=== PATIENT | female | born 2000 | race Caucasian/White ===

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

== ENCOUNTER 2018-08-17 14:10 | Emergency (ER) | payer MEDICAID ==
[~2018-08-17] VITALS: Ht 167.6 cm; Wt 49.9 kg
--- NOTE | 2018-08-17 14:14 | NUR ---
PT AMBULATES TO BED 6
[2018-08-17 14:15] VITALS: BP 108/69
--- NOTE | 2018-08-17 14:20 | NUR ---
PT IS A 17 Y/O FEMALE WHO PRESENTS TO THE ED C/O VOMITING SINCE LAST NIGHT. PT REPORTS 9/10 ACHING LOWER ABD PAIN THAT DOES NOT RADIATE. PT DID NOT TAKE RX FOR PAIN. PT DENIES CP, SOB, REPORTS VOMITING/DIARRHEA. PT AWAKE AND ALERT, RR EVEN/UNLABORED. PT REPOSITIONED FOR COMFORT, BED IN LOWEST POSITION. ER MD DR. FLORES NOTIFIED. WILL CONTINUE TO MONITOR. NO PMH NKA
[2018-08-17 14:39] LABS: APPEARANCE,URINE CLEAR (CLEAR); BILIRUBIN,URINE 1+ (NEGATIVE); BLOOD, URINE NEGATIVE (NEGATIVE); COLOR,URINE YELLOW (YELLOW); LEUKOCYTE ESTERASE ,URINE NEGATIVE (NEGATIVE); NITRITE, URINE NEGATIVE (NEGATIVE); UGLUCOSE NEGATIVE (NEGATIVE)
[2018-08-17 14:40] LABS: RBC,URINE 0-5 (RARE) /HPF (0-5); WBC,URINE 0-5 (RARE) /HPF (0-5)
[2018-08-17 15:02] LABS: BARBITURATE, URINE NEG. ng/ml (NEG <=200); BENZODIAZEPINE, URINE NEG. ng/mL (NEG <=200); CANNABINOID, URINE NEG. ng/mL (NEG <=50); COCAINE, URINE NEG. ng/mL (NEG <=300); OPIATE, URINE NEG. ng/mL (NEG <=2000); PHENCYCLIDINE SCREEN,URINE NEG. ng/mL (NEG <=25)
[2018-08-17] MEDS ORDERED: PROMETHAZINE 25 MG/ML VIAL IM ONE (15:05)
[2018-08-17] MEDS ORDERED: MECLIZINE 25 MG TAB PO ONE (15:05)
[2018-08-17] MEDS ORDERED: ONDANSETRON 4 MG ODT PO ONE (15:05)
[2018-08-17 16:35] VITALS: BP 127/72
--- NOTE | 2018-08-17 16:35 | NUR ---
Patient discharged with v/s stable. Written and verbal after care instructions given and explained. Patient alert, oriented and verbalized understanding of instructions. Ambulatory with steady gait. All questions addressed prior to discharge. ID band removed. Patient advised to follow up with PMD. Rx of FAMOTIDINE 20MG AND PHENERGAN 25MG given. Patient educated on indication of medication including possible reaction and side effects. Opportunity to ask questions provided and answered.
== END 2018-08-17 16:35 | disposition home or self-care (01) ==
LOC: MED 14:10
DX: R11.2 Nausea with vomiting, unspecified (principal); R19.7 Diarrhea, unspecified; R50.9 Fever, unspecified; R42 Dizziness and giddiness; Z79.899 Other long term (current) drug therapy
CPT/HCPCS: 80305; 81001; 81025; 96372; 99283; J2550; J8597; Q0162

== ENCOUNTER 2018-09-01 19:18 | Emergency (ER) | payer MEDICAID ==
[~2018-09-01] VITALS: Ht 170.2 cm; Wt 48.8 kg
[2018-09-01 19:58] VITALS: BP 112/73
--- NOTE | 2018-09-01 20:01 | NUR ---
PT RETURNED TO LOBBY IN STABLE CONDITION
--- NOTE | 2018-09-01 21:57 | NUR ---
PT AMBULATED TO BED 06.
--- NOTE | 2018-09-01 22:37 | NUR ---
X-RAY AT BEDSIDE.
--- NOTE | 2018-09-01 23:00 | NUR ---
PATIENT PRESENTS TO ED WITH ABD PAIN. PT STATES SHE HAS HAD COLD LIKE SYMPTOMS X1-2 WEEKS, VOMITIED LAST NIGHT, HAS NOT BE ABLE TO EAT SINCE THEN. 01/21 ABD PAIN, TIGHTNESS/CRAMPING. +PRODUCTIVE COUGH, LUNG SOUNDS CLEAR THROUGH OUT. BOWEL SOUND ACTIVE X4 QUAD, LBM 08/31. LMP: 08/27/18. SKIN IS PINK/WARM/DRY; AAOX4 WITH EVEN AND STEADY GAIT; LUNGS CLEAR BL; HR EVEN AND REGULAR; PT DENIES ANY FEVER, CP AND SOB AT THIS TIME; VSS; PATIENT POSITIONED FOR COMFORT; HOB ELEVATED; BEDRAILS UP X1; BED DOWN. ER MD MADE AWARE OF PT STATUS. PMH--DENIES RX--DENIES
--- NOTE | 2018-09-01 23:11 | NUR ---
Dr. Kraus evaluating patient at bedside.
--- NOTE | 2018-09-01 23:24 | NUR ---
Patient discharged with v/s stable. Written and verbal after care instructions given and explained. Patient alert, oriented and verbalized understanding of instructions. Ambulatory with steady gait. All questions addressed prior to discharge. ID band removed. Patient advised to follow up with PMD. Rx of Mineral Oil, Zofran, and Senokot given. Patient educated on indication of medication including possible reaction and side effects. Opportunity to ask questions provided and answered.
[2018-09-01 23:28] VITALS: BP 102/64
== END 2018-09-01 23:24 | disposition home or self-care (01) ==
LOC: MED 19:18
DX: K59.00 Constipation, unspecified (principal)
CPT/HCPCS: 74018; 81002; 81025; 99283; Q0092

== ENCOUNTER 2018-09-13 15:17 | Emergency (ER) | payer MEDICAID ==
[~2018-09-13] VITALS: Ht 170.2 cm; Wt 49.9 kg
[2018-09-13 15:22] VITALS: BP 126/66
--- NOTE | 2018-09-13 15:40 | NUR ---
BIB MOTHER WITH C/O DOG BITE EARLIER TODAY ON FACE. + REDNESS, + BLEEDING, PRESSURE APPLIED TO AREA. . DENIES N/V/D; SKIN IS PINK/WARM/DRY; AAOX4 WITH EVEN AND STEADY GAIT; LUNGS CLEAR BL; HR EVEN AND REGULAR; PT DENIES ANY FEVER, CP, SOB, OR COUGH AT THIS TIME; PATIENT STATES PAIN OF 8/10 AT THIS TIME; VSS; PATIENT POSITIONED FOR COMFORT; HOB ELEVATED; BEDRAILS UP X2; BED DOWN. ER MD MADE AWARE OF PT STATUS.
[2018-09-13] MEDS ORDERED: KETOROLAC 60 MG/2 ML VIAL IM ONE (15:50)
[2018-09-13 16:32] VITALS: BP 126/66
== END 2018-09-13 16:33 | disposition home or self-care (01) ==
LOC: MED 15:17
DX: S01.81XA Laceration without foreign body of other part of head, initial encounter (principal); Z79.899 Other long term (current) drug therapy; W54.0XXA Bitten by dog, initial encounter; Y93.89 Activity, other specified; Y92.89 Other specified places as the place of occurrence of the external cause; Y99.8 Other external cause status
CPT/HCPCS: 12011; 90471; 90715; 96372; 99283; J1885

== ENCOUNTER 2019-07-02 20:34 | Emergency (ER) | payer MEDICAID ==
[~2019-07-02] VITALS: Ht 170.2 cm; Wt 52.2 kg
--- NOTE | 2019-07-02 20:38 | NUR ---
TO LOBBY A/ W BED AMBULATORY
[2019-07-02 20:40] VITALS: BP 150/90
--- NOTE | 2019-07-02 21:07 | NUR ---
PATIENT SITTING UP IN CHAIR. FRIEND AT CHAIRSIDE. NO NEEDS STATED AT THIS TIME. NO DISTRESS NOTED.
[2019-07-02] MEDS ORDERED: DEXAMETHASONE 10 MG/ML VIAL IM ONE (21:40)
[2019-07-02 21:49] VITALS: BP 138/85
--- NOTE | 2019-07-02 21:50 | NUR ---
Patient discharged with v/s stable. Written and verbal after care instructions given and explained. Patient alert, oriented and verbalized understanding of instructions. Ambulatory with steady gait. All questions addressed prior to discharge. ID band removed. Patient advised to follow up with PMD. Rx of TYLENOL, MOTRIN, PROMETHAZINE given. Patient educated on indication of medication including possible reaction and side effects. Opportunity to ask questions provided and answered.
== END 2019-07-02 21:50 | disposition home or self-care (01) ==
LOC: MED 20:34
DX: J06.9 Acute upper respiratory infection, unspecified (principal); Z86.39 Personal history of other endocrine, nutritional and metabolic disease; Z79.899 Other long term (current) drug therapy
CPT/HCPCS: 81002; 81025; 96372; 99283; J1100

== ENCOUNTER 2019-09-08 12:09 | Emergency (ER) | payer MEDICAID ==
[~2019-09-08] VITALS: Ht 167.6 cm; Wt 52.2 kg
[2019-09-08 12:37] VITALS: BP 91/51
--- NOTE | 2019-09-08 12:40 | NUR ---
URINE CUP HANDED TO PT FOR SAMPLE
--- NOTE | 2019-09-08 13:15 | NUR ---
RECEIVED A 21/ FROM [employer] FOR NAUSEA AND VOMITTING AND GENERALIZED BODY ACHES. PT IS APPROX 12 WEEKS GESTATION; . ABD IS SOFT NON TENDER. IN BED FOR MSE.
[2019-09-08] MEDS ORDERED: METOCLOPRAMIDE 10 MG/2 ML INJ VIAL IVP ONE (15:05)
[2019-09-08] MEDS ORDERED: NACL 0.9% 1,000 ML IV ONE (15:05)
[2019-09-08 15:35] LABS: APPEARANCE,URINE SL CLOUDY (CLEAR); BILIRUBIN,URINE 1+ (NEGATIVE); BLOOD, URINE NEGATIVE (NEGATIVE); COLOR,URINE YELLOW (YELLOW); LEUKOCYTE ESTERASE ,URINE 1+ (NEGATIVE); NITRITE, URINE NEGATIVE (NEGATIVE); UGLUCOSE NEGATIVE (NEGATIVE)
[2019-09-08 15:52] LABS: RBC,URINE 0-5 /HPF (0-5)
--- NOTE | 2019-09-08 16:00 | NUR ---
PT MEDICATED WITH REGLAN FOR N/V. NO EPISODES OF N/V SINCE ADMINISTRATION.
--- NOTE | 2019-09-08 16:50 | NUR ---
IV removed, catheter intact and site benign. Applied folded 4x4 gauze and tape to stop bleeding.
[2019-09-08 16:53] VITALS: BP 105/57
--- NOTE | 2019-09-08 16:53 | NUR ---
Patient discharged with v/s stable. Written and verbal after care instructions given and explained. Patient alert, oriented and verbalized understanding of instructions. Ambulatory with steady gait. All questions addressed prior to discharge. ID band removed. Patient advised to follow up with PMD. Rx of NITROFURATONIN, DICEGLIS, TAMIFLU, AND REGLAN, given. Patient educated on indication of medication including possible reaction and side effects. Opportunity to ask questions provided and answered.
--- NOTE | 2019-09-10 06:28 | NUR ---
Late entry. Confirmed with RN that 0.9 NS IV was completed at 1630
== END 2019-09-08 16:53 | disposition home or self-care (01) ==
LOC: MED 12:09
DX: O23.41 Unspecified infection of urinary tract in pregnancy, first trimester (principal); O26.891 Other specified pregnancy related conditions, first trimester; B34.9 Viral infection, unspecified; E07.9 Disorder of thyroid, unspecified; Z3A.12 12 weeks gestation of pregnancy; Z79.899 Other long term (current) drug therapy
CPT/HCPCS: 81001; 81025; 87086; 96361; 96374; 99283; J2765; J7030

== ENCOUNTER 2020-01-19 22:15 | Inpatient (IN) | payer OTHER, SELFPAY ==
[~2020-01-19] VITALS: Ht 170.2 cm; Wt 61.2 kg
[2020-01-20] MEDS ORDERED: fentaNYL 0.05 MG/ML VIAL IVP PRN (00:30)
[2020-01-20] MEDS ORDERED: PROMETHAZINE 25 MG/ML VIAL IVP PRN (00:30)
[2020-01-20 00:47] LABS: APPEARANCE,URINE CLEAR (CLEAR); BILIRUBIN,URINE NEGATIVE (NEGATIVE); BLOOD, URINE NEGATIVE (NEGATIVE); COLOR,URINE YELLOW (YELLOW); LEUKOCYTE ESTERASE ,URINE 1+ (NEGATIVE); NITRITE, URINE NEGATIVE (NEGATIVE); UGLUCOSE NEGATIVE (NEGATIVE)
[2020-01-20 00:47] LABS: BASOPHILS % (AUTO) 0.4 % (0.0-2.0); EOSINOPHILS % (AUTO) 0.5 % (0.0-4.0); HEMATOCRIT 31.7 % (36-48); HEMOGLOBIN 10.7 g/dL (12.0-16.0); LYMPHOCYTES % (AUTO) 12.5 % (20.5-51.1); MEAN CORPUSCULAR HEMOGLOBIN 31 pg (27-31); MEAN CORPUSCULAR HGB CONC 34 g/dL (33-37); MEAN CORPUSCULAR VOLUME 91.9 fL (80-94); MONOCYTES # (AUTO) 0.7 K/uL (0.8-1.0); MONOCYTES % (AUTO) 8.8 % (1.7-9.3); NEUTROPHILS # (AUTO) 6.4 K/uL (1.8-7.7); NEUTROPHILS % (AUTO) 77.8 % (42.2-75.2); PLATELET COUNT (AUTO) 174 K/uL (140-450); RED BLOOD CELL COUNT(AUTO) 3.45 MIL/uL (4.20-5.40); RED CELL DISTRIBUTION WIDTH 12.5 % (11.6-13.7); WHITE BLOOD COUNT (AUTO) 8.2 K/uL (4.8-10.8)
[2020-01-20] MEDS ORDERED: fentaNYL 0.05 MG/ML VIAL ONE (00:49)
[2020-01-20] MEDS ORDERED: PROMETHAZINE 25 MG/ML VIAL ONE (00:49)
[2020-01-20 01:09] LABS: ALBUMIN 2.7 g/dL (3.4-5.0); CARBON DIOXIDE 23.6 mmol/L (21-32); CREATININE 0.5 mg/dL (0.6-1.3); POTASSIUM 3.6 mmol/L (3.5-5.1); TOTAL BILIRUBIN 0.5 mg/dL (0.0-1.0)
[2020-01-20 01:53] LABS: RBC,URINE 0-5 /HPF (0-5); WBC,URINE 0-5 /HPF (0-5)
[2020-01-20] MEDS ORDERED: fentaNYL 0.05 MG/ML VIAL IVP SCH (04:20)
--- NOTE | 2020-01-20 08:22 | NUR ---
PATIENT HAS BEEN SCREENED AND CATEGORIZED LOW NUTRITION RISK. PATIENT WILL BE SEEN WITHIN 7 DAYS OF ADMISSION. 01/26/[address]
[2020-01-20] MEDS ORDERED: PREN-380 PO (08:54)
[2020-01-20] MEDS ORDERED: [UNRECOGNIZED DRUG - CODE] PO (08:55)
[2020-01-20] MEDS ORDERED: BETAMETH ACET/BETAMETH NA PH 30 MG/5 ML VIAL IM SCH (19:10)
[2020-01-20] MEDS ORDERED: BETAMETH ACET/BETAMETH NA PH 30 MG/5 ML VIAL IM ONE (19:49)
[2020-01-20] MEDS ORDERED: NACL 0.9% 1,000 ML IV SCH (21:30)
[2020-01-20] MEDS ORDERED: cefTRIAXone 1,000 MG VIAL ONE (21:39)
[2020-01-21 06:27] LABS: BASOPHILS % (AUTO) 0.2 % (0.0-2.0); HEMOGLOBIN 10.4 g/dL (12.0-16.0); LYMPHOCYTES # (AUTO) 0.6 K/uL (2.5-16.5); LYMPHOCYTES % (AUTO) 8.1 % (20.5-51.1); MEAN CORPUSCULAR HEMOGLOBIN 31 pg (27-31); MEAN CORPUSCULAR HGB CONC 34 g/dL (33-37); MEAN CORPUSCULAR VOLUME 92.4 fL (80-94); MONOCYTES # (AUTO) 0.1 K/uL (0.8-1.0); MONOCYTES % (AUTO) 1.6 % (1.7-9.3); NEUTROPHILS # (AUTO) 7.1 K/uL (1.8-7.7); NEUTROPHILS % (AUTO) 90.1 % (42.2-75.2); PLATELET COUNT (AUTO) 171 K/uL (140-450); RED BLOOD CELL COUNT(AUTO) 3.36 MIL/uL (4.20-5.40); RED CELL DISTRIBUTION WIDTH 12.3 % (11.6-13.7); WHITE BLOOD COUNT (AUTO) 7.9 K/uL (4.8-10.8)
[2020-01-21 07:21] LABS: ALBUMIN 2.5 g/dL (3.4-5.0); ANION GAP 12.1 (8-16); CARBON DIOXIDE 21.5 mmol/L (21-32); CREATININE 0.6 mg/dL (0.6-1.3); POTASSIUM 3.6 mmol/L (3.5-5.1); TOTAL BILIRUBIN 0.4 mg/dL (0.0-1.0)
[2020-01-21] MEDS ORDERED: BETAMETH ACET/BETAMETH NA PH 30 MG/5 ML VIAL IM ONE (19:15)
== END 2020-01-21 13:15 | disposition home or self-care (01) | DRG 566 ==
LOC: MLD 22:15 → EEVIPCON 22:15 → OBSVTOIN 22:16
PROVIDERS: ADMIT Obstetrics & Gynecology; ATTEND Obstetrics & Gynecology
DX: O75.2 Pyrexia during labor, not elsewhere classified (principal); O26.893 Other specified pregnancy related conditions, third trimester; Z3A.32 32 weeks gestation of pregnancy; R19.7 Diarrhea, unspecified; Z20.828 Contact with and (suspected) exposure to other viral communicable diseases
CPT/HCPCS: 36415; 76805; 80053; 81001; 85025; 87086; G0378; J0696; J0702; J2550; J3010; J7060; Q0092; U0003-CS

== ENCOUNTER 2020-01-21 19:52 | Observation (INO) | payer OTHER, SELFPAY ==
[~2020-01-21] VITALS: Ht 170.2 cm; Wt 63.5 kg
[~2020-01-21 19:52] MED LIST changes: +PREN-380 PO; +[UNRECOGNIZED DRUG - CODE] PO
[2020-01-21] MEDS ORDERED: BETAMETH ACET/BETAMETH NA PH 30 MG/5 ML VIAL IM ONE ×2 (20:10→20:53)
[2020-01-21] MEDS ORDERED: BETAMETH ACET/BETAMETH NA PH 30 MG/5 ML VIAL IM SCH (20:20)
== END 2020-01-21 21:36 | disposition home or self-care (01) ==
LOC: MLD 19:52
PROVIDERS: ADMIT Obstetrics & Gynecology; ATTEND Obstetrics & Gynecology
DX: O26.893 Other specified pregnancy related conditions, third trimester (principal); R19.7 Diarrhea, unspecified; Z3A.31 31 weeks gestation of pregnancy
CPT/HCPCS: 96372; G0378; J0702

== ENCOUNTER 2022-06-03 20:51 | Emergency (ER) | payer OTHER ==
[~2022-06-03] VITALS: Ht 170.2 cm; Wt 53.1 kg
[~2022-06-03 20:51] MED LIST changes: -DEP150I IM; -[UNRECOGNIZED DRUG - CODE] PO
[2022-06-03 21:38] VITALS: BP 136/82
--- NOTE | 2022-06-03 21:54 | NUR ---
Patient being evaluated by physician at bedside.
[2022-06-03] MEDS ORDERED: BENZ200C4 PO (21:57)
[2022-06-03] MEDS ORDERED: METH4TAB27 PO (21:57)
--- NOTE | 2022-06-03 22:00 | NUR ---
D/C INSTRUCTIONS AND MEDICAITON ADMIN PROVIDED BY DR. MELENDEZ. RX OF BENZONATATE AND METHYLPREDNISOLONE GIVEN.
== END 2022-06-03 22:00 | disposition home or self-care (01) ==
LOC: MED 20:51
DX: J06.9 Acute upper respiratory infection, unspecified (principal); R50.9 Fever, unspecified; M79.10 Myalgia, unspecified site; R05.9 Cough, unspecified; E07.9 Disorder of thyroid, unspecified; Z79.899 Other long term (current) drug therapy
CPT/HCPCS: 99283